=== PATIENT | female | born 1940 | race Caucasian/White ===

== ENCOUNTER 2016-04-24 18:26 | Inpatient (IN) | payer MEDICARE, BC ==
[~2016-04-24] VITALS: Ht 167.6 cm; Wt 90.1 kg
[2016-04-24 19:11] LABS: BASO % 0.1 % (0.0-2.0); GRAN # 6.4 (1.4-6.5); GRAN % 79.5 % (42.2-75.2); HEMOGLOBIN 12.3 g/dl (12.5-16.0); LYMPH # 1.2 (1.2-3.4); LYMPH % 15.3 % (20.0-51.0); MEAN CELL VOLUME 92 fl (80.0-100.0); MEAN CORPUSCULAR HEMOGLOBIN 31 pg (27.0-31.0); MEAN CORPUSCULAR HGB CONC 33 g/dl (33.0-37.0); MEAN PLATELET VOLUME 10.7 fl (7.4-10.4); MONO # 0.4 (0.1-0.6); MONO % 4.7 % (1.7-9.3); PLATELET COUNT 181 K/mm3 (130-400); RED BLOOD COUNT 4.02 M/mm3 (4.10-5.30); REDCELL DISTRIBUTION WIDTH-CV 13.8 % (11.5-14.5)
[2016-04-24 19:17] LABS: ADJUSTED CALCIUM 8.9 mg/dL (8.4-10.2); ALBUMIN 3.4 gm/dL (3.5-5.0); BILIRUBIN,TOTAL 0.7 mg/dL (0.0-1.0); CALCIUM 8.4 mg/dL (8.4-10.2); CREATININE, serum 0.83 mg/dL (0.52-1.25); POTASSIUM 3.1 mmol/L (3.4-5.0); TOTAL PROTEIN 5.9 gm/dL (6.4-8.2)
[2016-04-24 22:52] LABS: PH 5 (5-8); SQUAMOUS EPITHELIAL 0-2 /hpf; URINE APPEARANCE Hazy; URINE BACTERIA Rare /hpf; URINE BILIRUBIN Negative (NEGATIVE); URINE BLOOD 1+ (NEGATIVE); URINE COLOR Yellow; URINE GLUCOSE Negative (NEGATIVE); URINE KETONE Trace (NEGATIVE); URINE UROBILINOGEN Negative (NEGATIVE); URINE WBC 20-50 /hpf
[2016-04-24 23:21] VITALS: BP 162/71; PULSE 82; TEMP 99.8
[2016-04-24 23:35] LABS: INFLUENZA B NEGATIVE
[2016-04-25 05:51] VITALS: BP 153/70; PULSE 80; TEMP 97.8
[2016-04-25 08:22] LABS: BASO % 0.1 % (0.0-2.0); GRAN # 6.9 (1.4-6.5); GRAN % 88.5 % (42.2-75.2); HEMATOCRIT 37.6 % (37.0-47.0); HEMOGLOBIN 12.2 g/dl (12.5-16.0); LYMPH # 0.8 (1.2-3.4); LYMPH % 9.9 % (20.0-51.0); MEAN CELL VOLUME 95 fl (80.0-100.0); MEAN CORPUSCULAR HEMOGLOBIN 31 pg (27.0-31.0); MEAN CORPUSCULAR HGB CONC 32 g/dl (33.0-37.0); MEAN PLATELET VOLUME 10.8 fl (7.4-10.4); MONO # 0.1 (0.1-0.6); MONO % 0.9 % (1.7-9.3); PLATELET COUNT 180 K/mm3 (130-400); RED BLOOD COUNT 3.98 M/mm3 (4.10-5.30); REDCELL DISTRIBUTION WIDTH-CV 14.3 % (11.5-14.5); WHITE BLOOD COUNT 7.8 K/mm3 (4.8-10.8)
[2016-04-25 08:55] LABS: CALCIUM 7.7 mg/dL (8.4-10.2); CREATININE, serum 0.71 mg/dL (0.52-1.25); MAGNESIUM 2.1 mg/dL (1.6-2.3); POTASSIUM 3.6 mmol/L (3.4-5.0)
[2016-04-25 08:57] VITALS: BP 164/77; PULSE 82; TEMP 98.1
[2016-04-25 12:31] VITALS: BP 145/69; PULSE 82; TEMP 96.8
[2016-04-25 15:40] VITALS: BP 159/72; PULSE 74; TEMP 98.5
[2016-04-25 20:05] VITALS: BP 155/74; PULSE 86; TEMP 98.6
[2016-04-26 00:15] VITALS: BP 172/81; PULSE 80; TEMP 98.6
[2016-04-26 04:13] VITALS: BP 153/81; PULSE 77; TEMP 98.1
[2016-04-26 07:09] LABS: BASO % 0.1 % (0.0-2.0); GRAN # 8.7 (1.4-6.5); GRAN % 81.2 % (42.2-75.2); HEMATOCRIT 37.7 % (37.0-47.0); HEMOGLOBIN 12.5 g/dl (12.5-16.0); LYMPH # 1.5 (1.2-3.4); LYMPH % 13.8 % (20.0-51.0); MEAN CELL VOLUME 92 fl (80.0-100.0); MEAN CORPUSCULAR HEMOGLOBIN 30 pg (27.0-31.0); MEAN CORPUSCULAR HGB CONC 33 g/dl (33.0-37.0); MEAN PLATELET VOLUME 10.9 fl (7.4-10.4); MONO # 0.4 (0.1-0.6); MONO % 3.9 % (1.7-9.3); PLATELET COUNT 203 K/mm3 (130-400); RED BLOOD COUNT 4.12 M/mm3 (4.10-5.30); REDCELL DISTRIBUTION WIDTH-CV 14.3 % (11.5-14.5); WHITE BLOOD COUNT 10.7 K/mm3 (4.8-10.8)
[2016-04-26 07:17] VITALS: BP 158/88; PULSE 69; TEMP 98.1
[2016-04-26 07:18] LABS: CALCIUM 8.6 mg/dL (8.4-10.2); CREATININE, serum 0.61 mg/dL (0.52-1.25); POTASSIUM 3.3 mmol/L (3.4-5.0)
[2016-04-26 11:21] VITALS: BP 146/78; PULSE 75; TEMP 98.3
[2016-04-26] MEDS ORDERED: TAMIFLU 75MG75 MG PO (11:32)
[2016-04-26] MEDS ORDERED: ZESTRIL 10MG10 MG PO (11:32)
[2016-04-26 12:06] LABS: MAGNESIUM 2.2 mg/dL (1.6-2.3)
[2016-04-26] MEDS ORDERED: DOXYCYCLINE 10100 MG PO (12:07)
[2016-04-26] MEDS ORDERED: PREDNISONE20 MG PO (12:08)
== END 2016-04-26 16:10 | disposition home or self-care (01) | DRG 871 ==
LOC: COL.ER 18:26 → MEDICAL 20:27
PROVIDERS: Family Medicine; Internal Medicine
DX: A41.9 Sepsis, unspecified organism (principal); J11.08 Influenza due to unidentified influenza virus with specified pneumonia; J84.9 Interstitial pulmonary disease, unspecified; E87.1 Hypo-osmolality and hyponatremia; E44.1 Mild protein-calorie malnutrition; K52.1 Toxic gastroenteritis and colitis; N39.0 Urinary tract infection, site not specified; J20.9 Acute bronchitis, unspecified; E86.1 Hypovolemia; I10 Essential (primary) hypertension; T36.1X5A Adverse effect of cephalosporins and other beta-lactam antibiotics, initial encounter; T36.3X5A Adverse effect of macrolides, initial encounter; Z88.0 Allergy status to penicillin; Z87.891 Personal history of nicotine dependence
CPT/HCPCS: 99223-AI; 99239; J0456; J0696; J1650; J2930; J3480; J7030; J7050; J7512

== ENCOUNTER → 2016-07-15 | Outpatient (CLI) | payer MEDICARE, BC ==
[~2016-07-15] MED LIST: DOXYCYCLINE 10100 MG PO; PREDNISONE20 MG PO; TAMIFLU 75MG75 MG PO; ZESTRIL 10MG10 MG PO
== END ==
LOC: MC.RAD 13:37
DX: N63 Unspecified lump in breast (principal)

== ENCOUNTER → 2017-01-01 | Outpatient (CLI) | payer MEDICARE, BC | LOC: MC.RAD 08:40 | DX: Z12.31 Encounter for screening mammogram for malignant neoplasm of breast (principal) ==

== ENCOUNTER → 2018-01-02 | Outpatient (CLI) | payer MEDICARE, BC | LOC: MC.RAD 03-28 13:00 | DX: Z12.31 Encounter for screening mammogram for malignant neoplasm of breast (principal) ==